=== PATIENT | male | born 1935 | race Caucasian/White ===

== ENCOUNTER → 2016-10-12 | Outpatient (CLI) | payer MEDICARE ==
[~2016-10-12] MED LIST: ALTOCOR20 MG PO; ASPI-COR81 M1 PO; CIPRO250 MG PO; CIPROFLOXACIN500 MG PO; ECPIRIN325 MG PO; FLEXERIL5 MG PO; FLOMAX0.4 MG PO; LOPRESSOR25 MG PO; METOPROLOL SUCC50 M2 PO; MOBIC7.5 MG PO; NAPROSYN500 MG PO; NORCO 325 MG-51 TAB PO; OMNIPEN PO; PERCOCET 325 MG1 TA2 PO; TOPROL XL25 MG PO; VITAMIN D-32000 UNIT PO
== END | disposition home or self-care (01) ==
LOC: CT 02:59
DX: K57.30 Diverticulosis of large intestine without perforation or abscess without bleeding (principal); R10.9 Unspecified abdominal pain; I70.1 Atherosclerosis of renal artery; N40.0 Benign prostatic hyperplasia without lower urinary tract symptoms; I70.0 Atherosclerosis of aorta; Z85.53 Personal history of malignant neoplasm of renal pelvis

== ENCOUNTER 2016-11-29 10:02 | Emergency (ER) | payer MEDICARE ==
[~2016-11-29] VITALS: Ht 170.1 cm; Wt 68.0 kg
[2016-11-29 10:14] VITALS: BP 152/62
[2016-11-29] MEDS ORDERED: INDOMETHACIN50 MG PO (11:32)
== END 2016-11-29 11:46 | disposition home or self-care (01) ==
LOC: ED 10:02
DX: M10.9 Gout, unspecified (principal); F17.200 Nicotine dependence, unspecified, uncomplicated; Z98.890 Other specified postprocedural states; Z90.89 Acquired absence of other organs; Z79.899 Other long term (current) drug therapy; Z79.82 Long term (current) use of aspirin

== ENCOUNTER 2017-05-02 07:49 | Emergency (ER) | payer MEDICARE ==
[~2017-05-02] VITALS: Ht 167.6 cm; Wt 68.0 kg
[~2017-05-02 07:49] MED LIST changes: +INDOMETHACIN50 MG PO
[2017-05-02 07:53] VITALS: BP 174/69
== END 2017-05-02 08:43 | disposition home or self-care (01) ==
LOC: ED 07:49
DX: M25.551 Pain in right hip (principal); M10.9 Gout, unspecified; I10 Essential (primary) hypertension; Z90.89 Acquired absence of other organs; Z98.890 Other specified postprocedural states; Z79.82 Long term (current) use of aspirin; Z87.891 Personal history of nicotine dependence

== ENCOUNTER → 2017-07-22 | Outpatient (CLI) | payer MEDICARE ==
[2017-07-22 09:33] LABS: CREATININE 1.62 mg/dL (0.70-1.30)
== END | disposition home or self-care (01) ==
LOC: LAB 09:00 → CT 09:00
PROVIDERS: Radiology Diagnostic Radiology
DX: I25.10 Atherosclerotic heart disease of native coronary artery without angina pectoris (principal); I70.0 Atherosclerosis of aorta; R06.02 Shortness of breath

== ENCOUNTER 2017-11-30 21:15 | Emergency (ER) | payer MEDICARE ==
[~2017-11-30] VITALS: Ht 167.6 cm; Wt 68.0 kg
--- NOTE | ~2017-11-30 | ED ---
[place], [place] EMERGENCY DEPARTMENT REPORT NAME: ANAID CAMPBELL JR UNIT #: [id number] PT STATUS: DEP ER DOCTOR: IZABELA OLIVERA MD ROOM #: DOS: 11/30/2017 PROCEDURE NOTE The patient was in the Emergency Room on 11/30/2017. This gentleman presented to the Emergency Room because of a bleeding wound on his finger. He had a large puncture on his finger, which had actually occurred earlier in the day. He had problems with continuous bleeding despite pressure. Please see the above note on the document from the Emergency Room. I recommended this gentleman the only way to stop the bleeding would be to actually sew the edges together despite the fact that it was a small wound. The patient gave permission and I proceeded. Procedure was to repair the small puncture because of persistent bleeding for a number of hours. The area was prepped and draped in the usual manner with Betadine wash. Digital block at the base of the right index finger with lidocaine and the patient tolerated the digital block. The wound was explored and there were no foreign bodies and the laceration was closed with three times 6-0 Prolene suture. Excellent hemostasis. The patient was monitored continuously and had no further bleeding and he will follow up with his PCP. Sutures will be removed in 7-10 days. IZABELA OLIVERA MD CM:EDRPT:EMERGENCY DEPARTMENT REPORT [id number]
[2017-11-30 22:36] VITALS: BP 168/78
== END 2017-11-30 23:36 | disposition home or self-care (01) ==
LOC: ED 21:15
DX: S61.230A Puncture wound without foreign body of right index finger without damage to nail, initial encounter (principal); R51 Headache; Z79.1 Long term (current) use of non-steroidal anti-inflammatories (NSAID); Z79.82 Long term (current) use of aspirin; Z79.899 Other long term (current) drug therapy; Z98.890 Other specified postprocedural states; W22.8XXA Striking against or struck by other objects, initial encounter; Y93.89 Activity, other specified; Y92.89 Other specified places as the place of occurrence of the external cause; Y99.8 Other external cause status

== ENCOUNTER → 2018-09-22 | Outpatient (CLI) | payer MEDICARE | END | disposition home or self-care (01) | LOC: CT 10:18 | DX: K57.90 Diverticulosis of intestine, part unspecified, without perforation or abscess without bleeding (principal) ==

== ENCOUNTER → 2019-01-15 | Outpatient (CLI) | payer MEDICARE | END | disposition home or self-care (01) | LOC: CARD 10:06 | DX: I08.0 Rheumatic disorders of both mitral and aortic valves (principal) ==

== ENCOUNTER → 2019-09-07 | Outpatient (CLI) | payer MEDICARE | END | disposition home or self-care (01) | LOC: CT 10:34 | DX: R10.9 Unspecified abdominal pain (principal) ==

== ENCOUNTER → 2019-12-19 | Outpatient (CLI) | payer MEDICARE ==
[2019-12-19 10:30] LABS: BASO % 0.4 % (0.0-1.0); EOS # 0.1 10*3/uL (0.0-0.4); HEMATOCRIT 36.7 % (42.0-52.0); LYMPH # 0.8 10*3/uL (1.3-4.4); LYMPH % 10.5 % (27.0-41.0); MEAN CELL VOLUME 97.6 fl (80.0-94.0); MEAN CORPUSCULAR HGB 31.4 pg (27.0-31.0); MEAN CORPUSCULAR HGB CONC 32.2 g/dl (33.0-37.0); MEAN PLATELET VOLUME 8.8 fl (9.6-12.3); MONO # 0.5 10*3/uL (0.1-1.0); MONO % 7.3 % (3.0-9.0); NEUT # 5.7 10*3/uL (2.3-7.9); PLATELET COUNT AUTOMATED 225 10*3/uL (130-400); RED BLOOD COUNT 3.76 10*6/uL (4.50-5.90); WHITE BLOOD COUNT 7.1 10*3/uL (4.8-10.8)
[2019-12-19 11:01] LABS: ALBUMIN 3.1 gm/dl (3.1-4.5); CREATININE 1.94 mg/dL (0.70-1.30); FREE T4 1.01 ng/dl (0.76-1.46); POTASSIUM 4.5 mmol/L (3.5-5.1); TOTAL PROTEIN 6.8 gm/dL (6.4-8.2)
[2019-12-19 11:05] LABS: THYROID STIM HORMONE (HS) 2.01 uIU/ml (0.358-4.75)
[2019-12-19 12:56] LABS: VITAMIN D, 25-HYDROXY 37.6 ng/mL (30-100)
== END | disposition home or self-care (01) ==
LOC: LAB 10:08
PROVIDERS: ATTEND Internal Medicine
DX: Z00.00 Encounter for general adult medical examination without abnormal findings (principal); E55.9 Vitamin D deficiency, unspecified; E78.2 Mixed hyperlipidemia; I10 Essential (primary) hypertension

== ENCOUNTER → 2019-12-28 | Outpatient (CLI) | payer MEDICARE | END | disposition home or self-care (01) | LOC: CT 12-19 10:07 → US 11:00 → CT 12-31 10:00 | PROVIDERS: ATTEND Internal Medicine | DX: R42 Dizziness and giddiness (principal); R20.2 Paresthesia of skin ==

== ENCOUNTER 2020-05-04 13:01 | Inpatient (IN) | payer MEDICARE ==
[~2020-05-04] VITALS: Ht 167.6 cm; Wt 65.1 kg
[2020-05-04] VITALS (24 sets, daily range): BP systolic 134–234; BP diastolic 75–142
[2020-05-04 14:09] LABS: BASO % 0.6 % (0.0-1.0); EOS # 0.1 10*3/uL (0.0-0.4); EOS % 1.4 % (1.0-4.0); HEMATOCRIT 40.1 % (42.0-52.0); LYMPH # 0.9 10*3/uL (1.3-4.4); LYMPH % 13.9 % (27.0-41.0); MEAN CORPUSCULAR HGB 30.8 pg (27.0-31.0); MEAN CORPUSCULAR HGB CONC 32.4 g/dl (33.0-37.0); MEAN PLATELET VOLUME 9.5 fl (9.6-12.3); MONO # 0.5 10*3/uL (0.1-1.0); NEUT % 76.3 % (47.0-73.0); PLATELET COUNT AUTOMATED 263 10*3/uL (130-400); RED BLOOD COUNT 4.22 10*6/uL (4.50-5.90); RED CELL DISTRI WIDTH 12.8 % (0-14.5); WHITE BLOOD COUNT 6.6 10*3/uL (4.8-10.8)
[2020-05-04 14:24] LABS: ACT PARTIAL THROMBO TIME 34.4 SECONDS (20.0-32.1); INTERNATIONAL NORM RATIO 1.6 (2.0-3.5)
[2020-05-04 14:26] LABS: ALBUMIN 3.3 gm/dl (3.1-4.5); ALKALINE PHOSPHATASE 81 U/L (45-117); BUN 30 mg/dl (7-24); CHLORIDE 108 mmol/L (98-107); CREATININE 1.87 mg/dL (0.70-1.30); LIPASE 1469 U/L (73-393); POTASSIUM 4.8 mmol/L (3.5-5.1); SGOT/AST 14 IU/L (3-35); SGPT/ALT 14 U/L (12-78); SODIUM 138 mmol/L (136-145); TOTAL PROTEIN 7.3 gm/dL (6.4-8.2)
[2020-05-04 14:27] LABS: TROPONIN I < 0.015 ng/ml (<0.045)
[2020-05-04 17:00] LABS: BILIRUBIN Negative (Negative); BLOOD Negative (Negative); CLARITY Clear (Clear); COLOR Yellow (Yellow); GLUCOSE Negative (Negative); KETONE Negative (Negative); LEUKO ESTERASE Negative (Negative); NITRITE Negative (Negative); PH 6.5 (4.5-8.0); UROBILINOGEN 0.2 E.U./dl (0.0-1.0)
[2020-05-04 17:07] LABS: BACTERIA TRACE; EPITHELIAL CELLS 0-2; RBC 0-2 rbc/hpf (0-2); WBC 0-2 wbc/hpf (0-5)
[2020-05-04] MEDS ORDERED: COLACE100 MG PO (21:53)
[2020-05-04] MEDS ORDERED: RIVASTIGMINE T1.5 M1 PO (21:55)
[2020-05-04] MEDS ORDERED: METOPROLOL TART75 MG PO (21:57)
[2020-05-04] MEDS ORDERED: DICYCLOMINE HCL10 MG PO (21:58)
[2020-05-04] MEDS ORDERED: DONEPEZIL HYDROC5 MG PO (21:59)
[2020-05-04] MEDS ORDERED: JANTOVEN4 M1 PO (22:00)
[2020-05-05] VITALS (13 sets, daily range): BP systolic 140–222; BP diastolic 66–141
[2020-05-05 06:11] LABS: CREATININE 1.78 mg/dL (0.70-1.30); POTASSIUM 4.7 mmol/L (3.5-5.1)
[2020-05-05 06:25] LABS: INTERNATIONAL NORM RATIO 1.8 (2.0-3.5)
[2020-05-05] MEDS ORDERED: Coumadin2 MG PO (07:10)
[2020-05-05 09:13] LABS: BILIRUBIN Negative (Negative); BLOOD Negative (Negative); CLARITY Clear (Clear); COLOR Yellow (Yellow); GLUCOSE Negative (Negative); KETONE Negative (Negative); LEUKO ESTERASE Negative (Negative); NITRITE Negative (Negative); PH 5.5 (4.5-8.0); SPECIFIC GRAVITY 1.015 (1.001-1.030); UROBILINOGEN 0.2 E.U./dl (0.0-1.0)
[2020-05-05 09:58] LABS: URINE CREATININE RANDOM 70.3 mg/dL
[2020-05-06] VITALS (7 sets, daily range): BP systolic 160–186; BP diastolic 69–86
[2020-05-06 06:37] LABS: CREATININE 1.81 mg/dL (0.70-1.30); POTASSIUM 4.3 mmol/L (3.5-5.1)
[2020-05-06 06:47] LABS: INTERNATIONAL NORM RATIO 2.4 (2.0-3.5)
[2020-05-07] VITALS: BP 159/71
[2020-05-07 04:00] VITALS: BP 172/76
[2020-05-07 05:36] LABS: CREATININE 1.74 mg/dL (0.70-1.30); POTASSIUM 4.3 mmol/L (3.5-5.1)
[2020-05-07 06:44] LABS: INTERNATIONAL NORM RATIO 2.9 (2.0-3.5)
[2020-05-07 08:00] VITALS: BP 150/84
[2020-05-07 12:00] VITALS: BP 131/64
[2020-05-07 16:00] VITALS: BP 178/92
[2020-05-07 20:00] VITALS: BP 137/76
[2020-05-08] VITALS (8 sets, daily range): BP systolic 96–182; BP diastolic 45–86
[2020-05-08 05:37] LABS: CREATININE 1.75 mg/dL (0.70-1.30); POTASSIUM 3.8 mmol/L (3.5-5.1)
[2020-05-08 06:20] LABS: INTERNATIONAL NORM RATIO 3.1 (2.0-3.5)
[2020-05-08] MEDS ORDERED: AMLODIPINE BESY10 MG PO (10:13)
[2020-05-08] MEDS ORDERED: APRESOLINE25 MG PO (10:13)
[2020-05-08] MEDS ORDERED: RIVASTIGMINE TAR3 M1 PO (10:13)
[2020-05-09] VITALS: BP 158/86
[2020-05-09 04:00] VITALS: BP 154/74
[2020-05-09 05:15] LABS: CREATININE 1.85 mg/dL (0.70-1.30); POTASSIUM 4.2 mmol/L (3.5-5.1)
[2020-05-09 06:19] LABS: INTERNATIONAL NORM RATIO 4.1 (2.0-3.5)
[2020-05-09 08:00] VITALS: BP 178/75
[2020-05-09 12:00] VITALS: BP 175/81
[2020-05-09 16:06] VITALS: BP 180/88
[2020-05-09] MEDS ORDERED: ZESTRIL10 MG PO (16:57)
[2020-05-09 17:20] VITALS: BP 155/80
== END 2020-05-09 17:39 | disposition home health service (06) | DRG 305 ==
LOC: ED 13:01 → EDHOLD 15:29 → ICCU 15:29 → EDHOLD 19:45 → 5E 19:45 → ICCU 20:14 → 5E 05-08 06:59 → ICCU 05-08 10:36
PROVIDERS: Internal Medicine Nephrology; Nurse Practitioner Family; ADMIT Internal Medicine; ATTEND Internal Medicine
DX: I16.0 Hypertensive urgency (principal); N28.89 Other specified disorders of kidney and ureter; G30.1 Alzheimer's disease with late onset; F02.80 Dementia in other diseases classified elsewhere, unspecified severity, without behavioral disturbance, psychotic disturbance, mood disturbance, and anxiety; R53.1 Weakness; R62.7 Adult failure to thrive; N40.1 Benign prostatic hyperplasia with lower urinary tract symptoms; R33.8 Other retention of urine; D63.1 Anemia in chronic kidney disease; I48.0 Paroxysmal atrial fibrillation; I49.5 Sick sinus syndrome; E78.2 Mixed hyperlipidemia; F17.210 Nicotine dependence, cigarettes, uncomplicated; M10.9 Gout, unspecified; M15.9 Polyosteoarthritis, unspecified; I12.9 Hypertensive chronic kidney disease with stage 1 through stage 4 chronic kidney disease, or unspecified chronic kidney disease; T44.7X5A Adverse effect of beta-adrenoreceptor antagonists, initial encounter; N18.31 Chronic kidney disease, stage 3a; Z95.2 Presence of prosthetic heart valve; Z79.01 Long term (current) use of anticoagulants; Z90.5 Acquired absence of kidney; Z82.49 Family history of ischemic heart disease and other diseases of the circulatory system; Y92.89 Other specified places as the place of occurrence of the external cause; Z68.23 Body mass index [BMI] 23.0-23.9, adult

== ENCOUNTER 2021-01-12 07:56 | Emergency (ER) | payer MEDICARE ==
[~2021-01-12] VITALS: Ht 167.6 cm; Wt 63.5 kg
[~2021-01-12 07:56] MED LIST changes: +AMLODIPINE BESY10 MG PO; +APRESOLINE25 MG PO; +COLACE100 MG PO; +Coumadin2 MG PO; +DICYCLOMINE HCL10 MG PO; +DONEPEZIL HYDROC5 MG PO; +JANTOVEN4 M1 PO; +METOPROLOL TART75 MG PO; +RIVASTIGMINE T1.5 M1 PO; +RIVASTIGMINE TAR3 M1 PO; +ZESTRIL10 MG PO
[2021-01-12 08:18] VITALS: BP 131/79
== END 2021-01-12 10:24 | disposition home or self-care (01) ==
LOC: ED 07:56
DX: D23.9 Other benign neoplasm of skin, unspecified (principal); F17.200 Nicotine dependence, unspecified, uncomplicated; Z88.6 Allergy status to analgesic agent; Z79.899 Other long term (current) drug therapy; Z79.82 Long term (current) use of aspirin

== ENCOUNTER → 2021-05-14 | Outpatient (CLI) | payer MEDICARE | END | disposition home or self-care (01) | LOC: CT 08:00 | PROVIDERS: ATTEND Internal Medicine | DX: J43.9 Emphysema, unspecified (principal); R91.8 Other nonspecific abnormal finding of lung field; R10.9 Unspecified abdominal pain; J98.4 Other disorders of lung; N40.0 Benign prostatic hyperplasia without lower urinary tract symptoms; K57.30 Diverticulosis of large intestine without perforation or abscess without bleeding; Z90.5 Acquired absence of kidney ==

== ENCOUNTER → 2021-11-04 | Outpatient (CLI) | payer MEDICARE ==
[2021-11-04 09:08] LABS: BASO % 0.6 % (0.0-1.0); EOS # 0.1 10*3/uL (0.0-0.4); EOS % 2.1 % (1.0-4.0); HEMATOCRIT 37.7 % (42.0-52.0); LYMPH # 0.8 10*3/uL (1.3-4.4); LYMPH % 12.3 % (27.0-41.0); MEAN CELL VOLUME 98.7 fl (80.0-94.0); MEAN CORPUSCULAR HGB 31.2 pg (27.0-31.0); MEAN CORPUSCULAR HGB CONC 31.6 g/dl (33.0-37.0); MEAN PLATELET VOLUME 9.1 fl (9.6-12.3); MONO # 0.5 10*3/uL (0.1-1.0); MONO % 6.6 % (3.0-9.0); NEUT # 5.3 10*3/uL (2.3-7.9); NEUT % 77.5 % (47.0-73.0); PLATELET COUNT AUTOMATED 241 10*3/uL (130-400); RED BLOOD COUNT 3.82 10*6/uL (4.50-5.90); RED CELL DISTRI WIDTH 13.2 % (0-14.5); WHITE BLOOD COUNT 6.8 10*3/uL (4.8-10.8)
[2021-11-04 09:25] LABS: CREATININE 1.86 mg/dL (0.70-1.30); POTASSIUM 4.8 mmol/L (3.5-5.1)
[2021-11-04 09:30] LABS: FREE T4 1.06 ng/dl (0.76-1.46); THYROID STIM HORMONE (HS) 1.38 uIU/ml (0.358-4.75)
[2021-11-04 09:48] LABS: VITAMIN D, 25-HYDROXY 39.5 ng/mL (30-100)
== END | disposition home or self-care (01) ==
LOC: LAB 08:47
PROVIDERS: ATTEND Internal Medicine
DX: E78.2 Mixed hyperlipidemia (principal); I10 Essential (primary) hypertension; Z12.5 Encounter for screening for malignant neoplasm of prostate; Z23 Encounter for immunization; Z13.89 Encounter for screening for other disorder; Z13.1 Encounter for screening for diabetes mellitus; E55.9 Vitamin D deficiency, unspecified; Z13.0 Encounter for screening for diseases of the blood and blood-forming organs and certain disorders involving the immune mechanism; Z13.21 Encounter for screening for nutritional disorder; Z13.220 Encounter for screening for lipoid disorders; Z13.228 Encounter for screening for other metabolic disorders; Z13.29 Encounter for screening for other suspected endocrine disorder; Z13.6 Encounter for screening for cardiovascular disorders; Z13.9 Encounter for screening, unspecified

== ENCOUNTER 2022-05-21 09:40 | Emergency (ER) | payer MEDICARE ==
[~2022-05-21] VITALS: Ht 167.6 cm; Wt 65.8 kg
[2022-05-21 10:03] VITALS: BP 128/81
[2022-05-21 10:46] LABS: BASO % 0.5 % (0.0-1.0); EOS % 0.2 % (1.0-4.0); HEMATOCRIT 40.1 % (42.0-52.0); LYMPH # 0.7 10*3/uL (1.3-4.4); LYMPH % 7.6 % (27.0-41.0); MEAN CELL VOLUME 97.1 fl (80.0-94.0); MEAN CORPUSCULAR HGB 32.2 pg (27.0-31.0); MEAN CORPUSCULAR HGB CONC 33.2 g/dl (33.0-37.0); MEAN PLATELET VOLUME 9.4 fl (9.6-12.3); MONO # 0.5 10*3/uL (0.1-1.0); MONO % 5.7 % (3.0-9.0); NEUT # 7.3 10*3/uL (2.3-7.9); NEUT % 85.1 % (47.0-73.0); PLATELET COUNT AUTOMATED 265 10*3/uL (130-400); RED BLOOD COUNT 4.13 10*6/uL (4.50-5.90); RED CELL DISTRI WIDTH 13.1 % (0-14.5); WHITE BLOOD COUNT 8.5 10*3/uL (4.8-10.8)
[2022-05-21 10:51] LABS: ACT PARTIAL THROMBO TIME 35.5 SECONDS (20.0-32.1)
[2022-05-21 10:57] LABS: ALKALINE PHOSPHATASE 68 U/L (46-116); BUN 31 mg/dl (9-23); CHLORIDE 110 mmol/L (98-107); LIPASE 40 U/L (12-53); POTASSIUM 4.9 mmol/L (3.4-5.1); SGPT/ALT 8 U/L (10-49); TOTAL PROTEIN 6.6 gm/dL (6.0-8.0)
== END 2022-05-21 15:10 | disposition home or self-care (01) ==
LOC: ED 09:40
PROVIDERS: Emergency Medicine
DX: R10.11 Right upper quadrant pain (principal); Z88.8 Allergy status to other drugs, medicaments and biological substances; Z79.899 Other long term (current) drug therapy; Z90.89 Acquired absence of other organs

== ENCOUNTER 2022-05-23 09:42 | Emergency (ER) | payer MEDICARE ==
[~2022-05-23] VITALS: Ht 172.7 cm; Wt 65.8 kg
[2022-05-23 09:46] VITALS: BP 148/78
[2022-05-23] MEDS ORDERED: KETOROLAC10 MG PO (10:58)
== END 2022-05-23 11:04 | disposition home or self-care (01) ==
LOC: ED 09:42
DX: R07.89 Other chest pain (principal); I10 Essential (primary) hypertension; E78.00 Pure hypercholesterolemia, unspecified; M94.0 Chondrocostal junction syndrome [Tietze]; Z88.5 Allergy status to narcotic agent; Z98.890 Other specified postprocedural states

== ENCOUNTER 2022-08-10 06:48 | Emergency (ER) | payer MEDICARE ==
[~2022-08-10] VITALS: Ht 167.6 cm; Wt 63.5 kg
[~2022-08-10 06:48] MED LIST changes: +KETOROLAC10 MG PO
[2022-08-10 06:58] VITALS: BP 151/95
[2022-08-10] MEDS ORDERED: CILOXAN 5 ML5 M1 OP (07:49)
== END 2022-08-10 08:04 | disposition home or self-care (01) ==
LOC: ED 06:48
DX: S05.01XA Injury of conjunctiva and corneal abrasion without foreign body, right eye, initial encounter (principal); I10 Essential (primary) hypertension; E78.00 Pure hypercholesterolemia, unspecified; Z88.5 Allergy status to narcotic agent; Z98.890 Other specified postprocedural states; X58.XXXA Exposure to other specified factors, initial encounter; Y93.89 Activity, other specified; Y92.89 Other specified places as the place of occurrence of the external cause; Y99.8 Other external cause status

== ENCOUNTER 2022-09-07 14:54 | Emergency (ER) | payer MEDICARE ==
[~2022-09-07 14:54] MED LIST changes: +CILOXAN 5 ML5 M1 OP
== END 2022-09-07 15:48 | disposition left against medical advice (07) ==
LOC: ED 14:54
DX: R58 Hemorrhage, not elsewhere classified (principal); Z53.21 Procedure and treatment not carried out due to patient leaving prior to being seen by health care provider

== ENCOUNTER 2022-11-30 16:05 | Emergency (ER) | payer MEDICARE ==
[~2022-11-30] VITALS: Ht 170.1 cm; Wt 63.5 kg
[2022-11-30 16:33] VITALS: BP 137/78
[2022-11-30 17:00] LABS: BASO % 0.2 % (0.0-1.0); EOS % 0.1 % (1.0-4.0); HEMATOCRIT 39.6 % (42.0-52.0); LYMPH # 0.5 10*3/uL (1.3-4.4); LYMPH % 6.4 % (27.0-41.0); MEAN CELL VOLUME 96.8 fl (80.0-94.0); MEAN CORPUSCULAR HGB 32.5 pg (27.0-31.0); MEAN CORPUSCULAR HGB CONC 33.6 g/dl (33.0-37.0); MEAN PLATELET VOLUME 8.9 fl (9.6-12.3); MONO # 0.3 10*3/uL (0.1-1.0); MONO % 4.2 % (3.0-9.0); NEUT # 7.1 10*3/uL (2.3-7.9); NEUT % 87.7 % (47.0-73.0); PLATELET COUNT AUTOMATED 307 10*3/uL (130-400); RED BLOOD COUNT 4.09 10*6/uL (4.50-5.90); RED CELL DISTRI WIDTH 12.8 % (0-14.5); WHITE BLOOD COUNT 8.1 10*3/uL (4.8-10.8)
[2022-11-30 17:11] LABS: ACT PARTIAL THROMBO TIME 32.8 SECONDS (20.0-32.1); INTERNATIONAL NORM RATIO 1.5 (2.0-3.5)
[2022-11-30 17:22] LABS: POTASSIUM 5.4 mmol/L (3.4-5.1); TOTAL PROTEIN 6.9 gm/dL (6.0-8.0)
== END 2022-11-30 19:24 | disposition home or self-care (01) ==
LOC: ED 16:05
PROVIDERS: Emergency Medicine
DX: S20.212A Contusion of left front wall of thorax, initial encounter (principal); Z88.5 Allergy status to narcotic agent; Z79.899 Other long term (current) drug therapy; Z79.2 Long term (current) use of antibiotics; Z98.890 Other specified postprocedural states; W22.01XA Walked into wall, initial encounter; Y93.89 Activity, other specified; Y92.818 Other transport vehicle as the place of occurrence of the external cause; Y99.8 Other external cause status

== ENCOUNTER 2022-12-03 08:17 | Emergency (ER) | payer MEDICARE ==
[~2022-12-03] VITALS: Ht 170.1 cm; Wt 64.4 kg
[2022-12-03 08:28] VITALS: BP 156/81
[2022-12-03] MEDS ORDERED: JANTOVEN4 M1 PO (08:31)
[2022-12-03] MEDS ORDERED: WARFARIN2 MG PO (08:32)
[2022-12-03] MEDS ORDERED: LISINOPRIL5 MG PO (08:33)
[2022-12-03] MEDS ORDERED: DUTASTERIDE0.5 MG PO (08:34)
[2022-12-03] MEDS ORDERED: AMLODIPINE BESYL5 MG PO (08:35)
[2022-12-03] MEDS ORDERED: RIVASTIGMINE T1.5 M1 PO (08:36)
[2022-12-03 09:36] LABS: ACT PARTIAL THROMBO TIME 35.6 SECONDS (20.0-32.1); INTERNATIONAL NORM RATIO 1.9 (2.0-3.5)
[2022-12-03 09:43] LABS: ALKALINE PHOSPHATASE 55 U/L (46-116); BUN 36 mg/dl (9-23); CHLORIDE 106 mmol/L (98-107); LIPASE 39 U/L (12-53); POTASSIUM 4.9 mmol/L (3.4-5.1); SGPT/ALT 9 U/L (5-49); TOTAL PROTEIN 6.2 gm/dL (6.0-8.0)
[2022-12-03 10:19] LABS: BASO % 0.6 % (0.0-1.0); EOS # 0.1 10*3/uL (0.0-0.4); EOS % 1.2 % (1.0-4.0); HEMATOCRIT 38.3 % (42.0-52.0); LYMPH # 0.9 10*3/uL (1.3-4.4); MEAN CELL VOLUME 98.5 fl (80.0-94.0); MEAN CORPUSCULAR HGB 33.2 pg (27.0-31.0); MEAN CORPUSCULAR HGB CONC 33.7 g/dl (33.0-37.0); MEAN PLATELET VOLUME 9.2 fl (9.6-12.3); MONO # 0.4 10*3/uL (0.1-1.0); MONO % 6.4 % (3.0-9.0); NEUT # 5.2 10*3/uL (2.3-7.9); NEUT % 77.5 % (47.0-73.0); PLATELET COUNT AUTOMATED 316 10*3/uL (130-400); RED BLOOD COUNT 3.89 10*6/uL (4.50-5.90); RED CELL DISTRI WIDTH 13.1 % (0-14.5); WHITE BLOOD COUNT 6.7 10*3/uL (4.8-10.8)
[2022-12-03] MEDS ORDERED: HYDROCODONE-AC1 EAC1 PO (12:55)
== END 2022-12-03 13:09 | disposition home or self-care (01) ==
LOC: ED 08:17
PROVIDERS: Emergency Medicine
DX: S22.32XA Fracture of one rib, left side, initial encounter for closed fracture (principal); Z88.5 Allergy status to narcotic agent; Z79.899 Other long term (current) drug therapy; Z79.82 Long term (current) use of aspirin; Z79.01 Long term (current) use of anticoagulants; Z98.890 Other specified postprocedural states; W22.8XXA Striking against or struck by other objects, initial encounter; Y93.89 Activity, other specified; Y92.89 Other specified places as the place of occurrence of the external cause; Y99.8 Other external cause status

== ENCOUNTER 2022-12-09 08:28 | Emergency (ER) | payer MEDICARE ==
[~2022-12-09] VITALS: Ht 170.1 cm; Wt 63.5 kg
[~2022-12-09 08:28] MED LIST changes: +AMLODIPINE BESYL5 MG PO; +DUTASTERIDE0.5 MG PO; +HYDROCODONE-AC1 EAC1 PO; +LISINOPRIL5 MG PO; +WARFARIN2 MG PO
[2022-12-09 08:45] VITALS: BP 119/69
[2022-12-09 11:10] LABS: BASO % 0.3 % (0.0-1.0); EOS % 0.1 % (1.0-4.0); HEMATOCRIT 38.8 % (42.0-52.0); LYMPH # 0.9 10*3/uL (1.3-4.4); LYMPH % 6.5 % (27.0-41.0); MEAN CELL VOLUME 96.8 fl (80.0-94.0); MEAN CORPUSCULAR HGB 32.7 pg (27.0-31.0); MEAN CORPUSCULAR HGB CONC 33.8 g/dl (33.0-37.0); MEAN PLATELET VOLUME 8.9 fl (9.6-12.3); MONO # 0.7 10*3/uL (0.1-1.0); MONO % 5.5 % (3.0-9.0); NEUT # 11.3 10*3/uL (2.3-7.9); NEUT % 86.3 % (47.0-73.0); PLATELET COUNT AUTOMATED 319 10*3/uL (130-400); RED BLOOD COUNT 4.01 10*6/uL (4.50-5.90); RED CELL DISTRI WIDTH 12.9 % (0-14.5); WHITE BLOOD COUNT 13.1 10*3/uL (4.8-10.8)
[2022-12-09 11:31] LABS: POTASSIUM 4.8 mmol/L (3.4-5.1); TOTAL PROTEIN 6.4 gm/dL (6.0-8.0)
[2022-12-09] MEDS ORDERED: PREPARATION H R28 GM T (14:37)
[2022-12-09] MEDS ORDERED: ANUSOL HC30 GM PO (14:37)
[2022-12-09] MEDS ORDERED: MIRALAX17 GM PO (14:37)
[2022-12-09] MEDS ORDERED: COLACE100 MG PO (14:37)
== END 2022-12-09 14:51 | disposition home or self-care (01) ==
LOC: ED 08:28
PROVIDERS: Internal Medicine
DX: K64.5 Perianal venous thrombosis (principal); K59.00 Constipation, unspecified; Z88.5 Allergy status to narcotic agent; Z79.899 Other long term (current) drug therapy; Z79.82 Long term (current) use of aspirin; Z79.01 Long term (current) use of anticoagulants; Z98.890 Other specified postprocedural states

== ENCOUNTER 2022-12-13 07:06 | Emergency (ER) | payer MEDICARE ==
[~2022-12-13] VITALS: Wt 61.2 kg
[~2022-12-13 07:06] MED LIST changes: +ANUSOL HC30 GM PO; +MIRALAX17 GM PO; +PREPARATION H R28 GM T
[2022-12-13 07:16] VITALS: BP 126/76
[2022-12-13 07:44] LABS: BASO % 0.4 % (0.0-1.0); EOS % 0.3 % (1.0-4.0); HEMATOCRIT 42.4 % (42.0-52.0); LYMPH # 0.6 10*3/uL (1.3-4.4); LYMPH % 5.8 % (27.0-41.0); MEAN CELL VOLUME 98.4 fl (80.0-94.0); MEAN CORPUSCULAR HGB 32.5 pg (27.0-31.0); MEAN PLATELET VOLUME 9.2 fl (9.6-12.3); MONO # 0.5 10*3/uL (0.1-1.0); MONO % 4.7 % (3.0-9.0); NEUT # 9.4 10*3/uL (2.3-7.9); NEUT % 87.7 % (47.0-73.0); PLATELET COUNT AUTOMATED 337 10*3/uL (130-400); RED BLOOD COUNT 4.31 10*6/uL (4.50-5.90); WHITE BLOOD COUNT 10.7 10*3/uL (4.8-10.8)
[2022-12-13 08:07] LABS: POTASSIUM 5.4 mmol/L (3.4-5.1); TOTAL PROTEIN 6.9 gm/dL (6.0-8.0)
[2022-12-13] MEDS ORDERED: PREDNISONE20 M1 PO (09:13)
[2022-12-13] MEDS ORDERED: AVPAK AZITHROM250 M1 PO (09:13)
[2022-12-13] MEDS ORDERED: CONSTULOSE10 GM/151 PO (09:13)
== END 2022-12-13 09:26 | disposition home or self-care (01) ==
LOC: ED 07:06
PROVIDERS: Emergency Medicine
DX: J44.1 Chronic obstructive pulmonary disease with (acute) exacerbation (principal); K59.00 Constipation, unspecified; I10 Essential (primary) hypertension; E78.00 Pure hypercholesterolemia, unspecified; Z88.5 Allergy status to narcotic agent; Z98.890 Other specified postprocedural states; F17.290 Nicotine dependence, other tobacco product, uncomplicated

== ENCOUNTER 2023-06-26 11:19 | Emergency (ER) | payer MEDICARE ==
[~2023-06-26] VITALS: Ht 167.6 cm; Wt 64.9 kg
[~2023-06-26 11:19] MED LIST changes: +AVPAK AZITHROM250 M1 PO; +CONSTULOSE10 GM/151 PO; +PREDNISONE20 M1 PO
[2023-06-26 11:24] VITALS: BP 165/75
[2023-06-26 11:51] LABS: BASO % 0.6 % (0.0-1.0); EOS # 0.1 10*3/uL (0.0-0.4); EOS % 2.1 % (1.0-4.0); HEMATOCRIT 34.9 % (42.0-52.0); LYMPH # 0.9 10*3/uL (1.3-4.4); LYMPH % 16.3 % (27.0-41.0); MEAN CELL VOLUME 98.3 fl (80.0-94.0); MEAN CORPUSCULAR HGB 31.5 pg (27.0-31.0); MEAN CORPUSCULAR HGB CONC 32.1 g/dl (33.0-37.0); MEAN PLATELET VOLUME 9.4 fl (9.6-12.3); MONO # 0.4 10*3/uL (0.1-1.0); MONO % 7.9 % (3.0-9.0); NEUT # 3.9 10*3/uL (2.3-7.9); NEUT % 72.5 % (47.0-73.0); PLATELET COUNT AUTOMATED 192 10*3/uL (130-400); RED BLOOD COUNT 3.55 10*6/uL (4.50-5.90); RED CELL DISTRI WIDTH 13.3 % (0-14.5); WHITE BLOOD COUNT 5.4 10*3/uL (4.8-10.8)
[2023-06-26 12:00] LABS: BILIRUBIN Negative (Negative); BLOOD 3+ (Negative); CLARITY Clear (Clear); GLUCOSE Negative (Negative); KETONE Negative (Negative); LEUKO ESTERASE Negative (Negative); NITRITE Negative (Negative); UROBILINOGEN 0.2 E.U./dl (0.0-1.0)
[2023-06-26 12:05] LABS: COLOR Yellow (Yellow)
[2023-06-26 12:08] LABS: BACTERIA TRACE; RBC TNTC rbc/hpf (0-2); WBC 0-2 wbc/hpf (0-5)
[2023-06-26 12:15] LABS: POTASSIUM 5.1 mmol/L (3.4-5.1); TOTAL PROTEIN 6.1 gm/dL (6.0-8.0)
== END 2023-06-26 15:21 | disposition home or self-care (01) ==
LOC: ED 11:19
PROVIDERS: Internal Medicine
DX: N28.9 Disorder of kidney and ureter, unspecified (principal); R31.9 Hematuria, unspecified; I10 Essential (primary) hypertension; E78.00 Pure hypercholesterolemia, unspecified; Z88.5 Allergy status to narcotic agent; Z98.890 Other specified postprocedural states

== ENCOUNTER → 2023-10-11 | Outpatient (CLI) | payer MEDICARE | END | disposition home or self-care (01) | LOC: CT 14:00 | PROVIDERS: ATTEND Urology | DX: K57.30 Diverticulosis of large intestine without perforation or abscess without bleeding (principal); N28.89 Other specified disorders of kidney and ureter; I25.10 Atherosclerotic heart disease of native coronary artery without angina pectoris; I70.0 Atherosclerosis of aorta; N40.0 Benign prostatic hyperplasia without lower urinary tract symptoms ==